=== PATIENT | female | born 2005 | race Caucasian/White ===

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

== ENCOUNTER 2024-07-15 21:47 | Emergency (ER) | payer SELFPAY ==
[2024-07-15 21:49] VITALS: BP 116/65; PULSE 91; RESP 18; TEMP 36.7; O2SAT 98; BMI 20.5
--- NOTE | 2024-07-15 22:27 | EDS_ITS ---
HPI History of Present Illness Chief Complaint: Cold Sx Narrative Narrative: Patient is a 19-year-old female past medical history anxiety, depression who presents to the emergency department with a chief complaint of diffuse bodyaches, cough, runny nose not feeling well. She states that she has been sick for approximately 3 days and woke up this morning feeling significantly worse prompting her to come here for the valuation management. Patient states that she has been drinking water and having smoothies. Patient denies any sick contacts. PFSH PFSH Medical History Depression Anxiety Alcohol use History of steroid therapy Low iron Easy bruising Gastric reflux Former smoker History of edema Chest pain Gastritis Home Medications ?Medication ?Instructions ?Recorded ?Last Taken ?Type dicyclomine 10 mg capsule 20 mg (2 x 10 mg) PO Q4H PRN PRN 12/28/21 Unknown Rx abdominal discomfort #30 CAPSULES norgestimate 0.25 mg-ethinyl 1 tab PO DAILY 12/28/21 U nknown History estradiol 35 mcg tablet (Crystal) azithromycin 250 mg tablet See Rx Instructions PO .COM PLEX #6 01/25/22 Unknown Rx tabs pantoprazole 40 mg tablet,delayed 40 mg PO DAILY PRN G ERD 03/21/22 Unknown History release (Protonix) metoclopramide HCl 5 mg tablet 5 mg PO BID gastropares is #60 tabs 04/07/22 Unknown Rx ondansetron 4 mg disintegrating 4 mg PO Q6H PRN nausea and 07/15/24 Unknown Rx tablet vomiting #20 tabs Allergy/AdvReac Type Severity Reaction Status Date / Time No Known Allergies Allergy Verified 07/15/24 21:50 Surgical History History of root canal procedure History of wisdom tooth extraction Social History Smoking Status: Former smoker ROS ROS ED ROS Narrative Constitutional: Claims whole body aches, fever, chills Eyes: Denies change in vision double vision blurry vision Cardiovascular: Denies chest pain Respiratory: Denies coughing wheezing shortness of breath Abdomen: Denies nausea vomiting diarrhea : Denies any urinary symptoms Neurological: Denies numbness, weakness, tingling Musculoskeletal: Denies back pain Skin: Denies rashes or lesions EXAM Physical Exam Narrative Exam Narrative: General: Patient lying in bed rest comfortably did not appear to be in acute distress Head: Atraumatic, normocephalic Eyes: PERRL bilaterally, EOMI bilaterally, no conjunctival injection noted Neck: Soft, supple, trachea midline Cardiovascular: Regular rate and rhythm no murmurs gallops rubs noted Respiratory: Clear to auscultation bilaterally Abdomen: Soft, nondistended, no tenderness palpation Extremities: +5/5 strength noted in the bilateral upper and lower extremities Neurological: Patient following commands as she was at [facility] year is 2024 Skin: Warm, dry, intact no rashes or lesions noted Const Vital Signs: 07/15/24 21:49 07/15/24 22:29 Temperature 98.1 F Temperature Source Temporal Pulse Rate 91 Respiratory Rate 18 Respiratory Effort Normal Respiratory Pattern Normal Blood Pressure 116/65 Blood Pressure Mean 82 Pulse Ox 98 Oxygen Delivery Method Room Air MDM MDM MDM Narrative Medical decision making narrative: Patient is a 19-year-old female who presents to the emerged part with a chief complaint of diffuse bodyaches, fever, chills not feeling well. On the differential diagnose includes but not limited to influenza, COVID, RSV, other upper respiratory infection secondary viral etiology. Once workup is obtained reviewed she will be reevaluated. Patient be given a gram of Tylenol. Patient refused Tylenol Patient wants to go home and follow-up on her swab on her MyChart. Patient remains nontoxic in appearance. Patient was advised to continue supportive care with fluids she will be given prescriptions for Zofran. She is encouraged to continue rotate Tylenol and ibuprofen [id number] as well as return with any other concerns. She is to follow-up with her primary care physician as well. She is agreeable this plan as well as for members at bedside of question concerns answered discharged home in stable condition. Discharge Plan Triage Chief Complaint: Cold Sx ED Provider: Hans Mcdowell Dx/Rx/DC Orders Clinical Impression: Body aches, Cough Prescriptions: New ondansetron 4 mg tablet,disintegrating 4 mg PO Q6H PRN (Reason: nausea and vomiting) Qty: 20 0RF No Action azithromycin 250 mg tablet See Rx Instructions PO .COMPLEX Qty: 6 0RF Rx Instructions: For 250 mg dose pack: take 500 mg today (day 1), then 250 mg for 4 days (days 2-5) PO norgestimate-ethinyl estradiol [Crystal] 0.25-35 mg-mcg tablet 1 tab PO DAILY Patient Comments: TAKE 1 TABLET BY MOUTH DAILY dicyclomine 10 mg capsule 20 mg PO Q4H PRN PRN (Reason: abdominal discomfort) Qty: 30 0RF pantoprazole [Protonix] 40 mg tablet,delayed release (DR/EC) 40 mg PO DAILY PRN (Reason: GERD) metoclopramide HCl 5 mg tablet 5 mg PO BID Qty: 60 2RF Rx Instructions: 30 minutes before meals twice a day Primary Care Provider: Care Physician,No Primary Referrals: Analy Noyola MD [Non-Staff] - Activity Restrictions/Additional Instructions: Follow-up with your primary care physician outpatient setting. Continue supportive care. Follow-up on the viral swab in the outpatient setting. Use the Zofran as sent to your pharmacy as needed for nausea. Ensure adequate hydration with fluids as you are already doing. Rotate Tylenol and I Profen [id number] when you are doing this you can take something every 3 hours max dose of Tylenol 4000 mg max dose of ibuprofen is 3200 mg. Print Language: Ivorian Disposition Disposition: Home, Self Care
== END 2024-07-15 22:53 | disposition home or self-care (01) ==
PROVIDERS: Emergency Provider Emergency Medicine; Visit Provider Emergency Medicine
DX: R05.1 Acute cough (principal); M79.18 Myalgia, other site; Z87.891 Personal history of nicotine dependence
CPT/HCPCS: 87631; 99282